=== PATIENT | male | born 1965 | race Caucasian/White ===

== ENCOUNTER 2021-10-19 09:28 | Day surgery (SDC) | payer BC ==
[2021-10-19] MEDS: Lactated Ringers 1,000 ML IV SCH (11:16)
[2021-10-19] MEDS ORDERED: Propofol 200 MG/20 ML SDV ONE ×2 (11:29→11:58)
[2021-10-19] MEDS ORDERED: fentaNYL 100 MCG/2 ML SDV ONE (11:43)
[2021-11-20] MEDS ORDERED: Lactated Ringers 1,000 ML IV SCH (07:00)
== END 2021-10-19 14:00 | disposition home or self-care (01) ==
LOC: VM.SDS 09:28
PROVIDERS: ATTEND Surgery
DX: Z12.11 Encounter for screening for malignant neoplasm of colon (principal); E66.9 Obesity, unspecified; Z98.890 Other specified postprocedural states
CPT/HCPCS: 00812; J2704; J3010; J7120